=== PATIENT | female | born 1965 | race Caucasian/White ===

== ENCOUNTER 2022-12-06 09:35 | Day surgery (SDC) | payer OTHER ==
[~2022-12-06] VITALS: Ht 154.9 cm; Wt 53.1 kg
[2022-12-06] MEDS ORDERED: LIDOCAINE 2% 100 MG/5 ML UJET TP ONE (10:55)
[2022-12-06] MEDS ORDERED: fentaNYL citrate 0.05 MG/ML VIAL ONE (10:55)
== END 2022-12-06 12:23 | disposition home or self-care (01) ==
LOC: MOR 09:35 → MMU 09:35 → MOR 12:23
PROVIDERS: ATTEND Internal Medicine Gastroenterology
DX: Z12.11 Encounter for screening for malignant neoplasm of colon (principal); Z86.010 Personal history of colon polyps; K21.9 Gastro-esophageal reflux disease without esophagitis; F41.9 Anxiety disorder, unspecified; F32.A Depression, unspecified; E78.5 Hyperlipidemia, unspecified; Z20.822 Contact with and (suspected) exposure to COVID-19
CPT/HCPCS: 45378; 87426; J3010